=== PATIENT | female | born 1955 | race Caucasian/White ===

== ENCOUNTER 2021-08-30 08:00 | Outpatient (CLI) | payer OTHER ==
--- NOTE | 2021-08-30 13:46 | XRAY Report ---
PROCEDURE: Shoulder 3 View RT INDICATIONS: TENDON DISORDER OF RIGHT SHOULDER TECHNIQUE: 3 views of the shoulder were acquired. COMPARISON: None. FINDINGS: BONES: Minimal cortical irregularity at the greater tuberosity, which may reflect a minimal displaced fracture. The glenohumeral and acromioclavicular joint spaces are maintained. SOFT TISSUES: A punctate calcific density overlies the humeral head, likely representing minimal calc ific tendinopathy. IMPRESSION: 1.Query minimal displaced fracture of the greater tuberosity. Reviewed by: Richard Juarez MD on 08/30/2021 1:45 PM PDT Approved by: Richard Juarez MD on 08/30/2021 1:45 PM PDT Station ID: [id number]
== END 2021-08-30 08:01 | disposition home or self-care (01) ==
LOC: DI.S 08:00
PROVIDERS: ATTEND Emergency Medicine
DX: M67.911 Unspecified disorder of synovium and tendon, right shoulder (principal); R93.6 Abnormal findings on diagnostic imaging of limbs

== ENCOUNTER 2021-11-11 08:14 | Emergency (ER) | payer OTHER ==
[2021-11-11 08:21] VITALS: BP 146/72
--- NOTE | 2021-11-11 09:23 | XRAY Report ---
PROCEDURE: Forearm LT INDICATIONS: Trauma TECHNIQUE: 2 views of the forearm were acquired. COMPARISON: None FINDINGS: Bones: There is a comminuted fracture of the distal ulna metaphysis. It is minimally displaced. No in tra-articular extension. No suspicious bony lesions. Soft tissues: No suspicious soft tissue calcifications or masses. IMPRESSION: Comminuted distal ulnar metaphyseal fracture. Reviewed by: Rafaela Garza MD on 11/11/2021 9:21 AM [facility] Approved by: Rafaela Garza MD on 11/11/2021 9:21 AM [facility] Station ID: [id number]
[2021-11-11] MEDS ORDERED: HYDROmorphone 1 MG/ML CARPUJECT IM STA (09:54)
[2021-11-11] MEDS ORDERED: ONDANSETRON ODT 4 MG TABLET TL STA (09:54)
--- NOTE | 2021-11-26 15:03 | ED Physician Documentation ---
PD HPI UPPER EXT INJURY - Stated complaint Stated Complaint: LT ARM INJ - Chief complaint Chief Complaint: Trauma Ext - History obtained from History obtained from: Patient - History of Present Illness Location: Left, Forearm, Wrist Type of injury: Fall Where injury occurred: Home Timing - onset: Today Timing - duration: Minutes Timing - details: Abrupt onset, Still present Improved by: Rest, Immobilization Worsened by: Moving, Palpating Similar symptoms before: Has not had sx before Recently seen: Not recently seen - Additonal information Additional information: 66 y/o female with a fall at home has pain to the distal forearm Review of Systems Constitutional: denies: Fever Respiratory: denies: Cough GI: denies: Vomiting PD PAST MEDICAL HISTORY - Allergies Allergies/Adverse Reactions: Allergies Allergy/AdvReac Type Severity Reaction Status Date / Time cephalexin Allergy Rash Verified 11/11/21 08:18 Sulfa (Sulfonamide Allergy Rash Verified 11/11/21 08:18 Antibiotics) PD ED PE NORMAL - Vitals Vital signs reviewed: Yes (hypertensive ) - General General: Alert and oriented X 3, Well developed/nourished - HEENT HEENT: Atraumatic, PERRL, EOMI - Respiratory Respiratory: No respiratory distress - Derm Derm: Normal color, Warm and dry, No rash - Extremities Extremities: Other (swelling and point tenderness to the distal L forearm over the distal ulna) - Neuro Neuro: No motor deficit, No sensory deficit Eye Opening: Spontaneous Motor: Obeys Commands Verbal: Oriented GCS Score: 15 - Psych Psych: Normal mood, Normal affect Results - Vitals Vitals: Oxygen O2 Source Room air - Rads (name of study) forearm. Radiology: Prelim report reviewed, EMP read indepedently, See rad report Procedures - Splint (location) left forearm Splint applied by: Tech Type of splint: Fiberglass, Sugar tong Other: Patient tolerated well, No complications, Neurovascular intact PD MEDICAL DECISION MAKING - ED course Complexity details: reviewed results, re-evaluated patient, considered differential, d/w patient ED course: 66-year-old female with a fall at home has a comminuted distal ulnar fracture she is placed in a splint and will follow-up with orthopedics. Departure - Departure Disposition: 01 Home, Self Care Clinical Impression: Left ulnar fracture Qualifiers: Encounter type: initial encounter Ulna location: distal Fracture type: closed Fracture morphology: unspecified fracture morphology Qualified Code(s): S52.602A - Unspecified fracture of lower end of left ulna, initial encounter for closed fracture Condition: Stable Follow-Up: Bakari Navarrete MD [Provider Admit Priv/Credential] - Discharge Date/Time: 11/11/21 15:38
== END 2021-11-11 15:38 | disposition home or self-care (01) ==
LOC: ED 08:14
DX: S52.692A Other fracture of lower end of left ulna, initial encounter for closed fracture (principal); W18.30XA Fall on same level, unspecified, initial encounter; Y92.009 Unspecified place in unspecified non-institutional (private) residence as the place of occurrence of the external cause
CPT/HCPCS: 29105; 73090; 96372; 99283; J1170; Q0162

== ENCOUNTER 2021-11-18 10:48 | Outpatient (CLI) | payer OTHER ==
--- NOTE | 2021-11-18 17:00 | XRAY Report ---
PROCEDURE: Wrist 3 View LT INDICATIONS: LEFT WRIST FX TECHNIQUE: 3 views of the wrist were acquired. COMPARISON: 4 image 3 series 11/11/2021 FINDINGS: Bones: Mildly displaced fracture of the distal ulna metaphysis. Fracture is proximal to the distal r adial ulnar joint. Soft tissues: No suspicious soft tissue calcifications. IMPRESSION: Distal ulna fracture approximately changed compared to prior examination. Reviewed by: Ayala Tovar MD, PhD on 11/18/2021 4:58 PM PST Approved by: Ayala Tovar MD, PhD on 11/18/2021 4:58 PM PST Station ID: [id number]
== END 2021-11-18 10:49 | disposition home or self-care (01) ==
LOC: DI.WOS 10:48
PROVIDERS: ATTEND Orthopaedic Surgery
DX: S52.692A Other fracture of lower end of left ulna, initial encounter for closed fracture (principal)

== ENCOUNTER 2021-12-30 09:45 | Outpatient (CLI) | payer OTHER ==
--- NOTE | 2021-12-31 15:53 | XRAY Report ---
PROCEDURE: Wrist 3 View LT INDICATIONS: WRIST FRACTURE TECHNIQUE: 3 views of the wrist were acquired. COMPARISON: X-ray wrist 11/18/2021 FINDINGS: Bones: There is a healing fracture with stable alignment of the distal ulna. Interval sclerosis is pr esent. No suspicious bony lesions. Soft tissues: No suspicious soft tissue calcifications. IMPRESSION: Interval healing with stable alignment of distal ulna fracture. Reviewed by: Rafaela Garza MD on 12/31/2021 3:52 PM PST Approved by: Rafaela Garza MD on 12/31/2021 3:52 PM PST Station ID: [id number]
== END 2021-12-30 09:46 | disposition home or self-care (01) ==
LOC: DI.WOS 09:45
PROVIDERS: ATTEND Orthopaedic Surgery
DX: S52.692D Other fracture of lower end of left ulna, subsequent encounter for closed fracture with routine healing (principal)

== ENCOUNTER 2022-02-18 09:15 | Outpatient (CLI) | payer OTHER ==
--- NOTE | 2022-02-18 14:17 | XRAY Report ---
PROCEDURE: Wrist 3 View LT INDICATIONS: WRIST FRACTURE TECHNIQUE: 3 views of the wrist were acquired. COMPARISON: 11/18/2021 and 12/30/2021. FINDINGS: Bones: Distal ulnar fracture is noted. Distal fragment fragment is displaced laterally. Callus format ion at the fracture site compatible with interval healing. Soft tissues: No suspicious soft tissue calcifications. IMPRESSION: Distal ulnar fracture healing with mild lateral displacement of the distal fracture fragment. Reviewed by: Ayala Tovar MD, PhD on 02/18/2022 2:16 PM PDT Approved by: Ayala Tovar MD, PhD on 02/18/2022 2:16 PM PDT Station ID: [id number]
== END 2022-02-18 23:59 | disposition home or self-care (01) ==
LOC: DI.WOS 09:15
PROVIDERS: ATTEND Orthopaedic Surgery
DX: S52.602D Unspecified fracture of lower end of left ulna, subsequent encounter for closed fracture with routine healing (principal)